=== PATIENT | female | born 1960 | race Caucasian/White ===

== ENCOUNTER 2019-04-02 16:58 | Emergency (ER) | payer MEDICAID ==
[~2019-04-02] VITALS: Ht 154.9 cm; Wt 77.6 kg
[2019-04-02 17:25] VITALS: BP 172/74; Ht 154.9 cm; Wt 77.6 kg
== END 2019-04-02 17:53 | disposition home or self-care (01) ==
LOC: ED 16:58
DX: J10.1 Influenza due to other identified influenza virus with other respiratory manifestations (principal); I10 Essential (primary) hypertension
CPT/HCPCS: 87804